=== PATIENT | female | born 1950 | race Hispanic/Latino ===

== ENCOUNTER → 2018-12-04 | Outpatient (CLI) | payer MEDICARE ==
--- NOTE | 2018-12-04 11:37 | Diagnostic Imaging Report ---
Exam: Bone mineral density study. History: Screening, menopause Comparison: None available. Discussion: Evaluation of the left hip and lumbar spine was performed. The study is technically adequate. The patient's fracture risk is compared to an age-matched control. The patient denies prior surgery/fracture of the spine, hips or forearm. Left hip femoral neck bone mineral density: 0.6 g/cm2, T-score is -2.4, Z-score is -0.9. Left hip total bone mineral density: 0.7 g/cm2, T-score is -1.9, Z-score is -0.8. Lumbar spine total bone mineral density: 0.9 g/cm2, T-score is -1.8, Z-score is 0.1. Impression: 1. Bone mineralization by WHO Classification is low bone mass/osteopenia, the fracture risk is increased. 2. The FRAX 10-year probability of major osteoporotic fracture is 12% and hip fracture is 2.2%. These probabilities assume the patient is untreated. Signed by: Dr. Warren Reid D.O., M.M.M. on 12/04/2018 11:34 AM
== END ==
LOC: MAMMO 10:04
PROVIDERS: ATTEND Nurse Practitioner Adult Health
DX: Z12.31 Encounter for screening mammogram for malignant neoplasm of breast (principal); M85.80 Other specified disorders of bone density and structure, unspecified site
CPT/HCPCS: 77067; 77080

== ENCOUNTER → 2019-01-27 | Outpatient (CLI) | payer MEDICARE ==
--- NOTE | 2019-01-27 10:50 | Diagnostic Imaging Report ---
EXAMINATION: RIBS UNILAT W/CXR INDICATION: Status post fall with left rib pain. COMPARISON: None FINDINGS: TUBES and LINES: None. LUNGS: Lungs are well inflated. There is no evidence of pneumonia or pulmonary edema. PLEURA: No pleural effusion or pneumothorax. HEART AND MEDIASTINUM: The cardiomediastinal silhouette is unremarkable. There are atherosclerotic calcifications within the aorta. BONES AND SOFT TISSUES: No acute osseous abnormality. No evidence of left-sided rib fracture. Diffuse osteopenia. UPPER ABDOMEN: No free air under the diaphragm. There are cholecystectomy clips. IMPRESSION: No acute radiographic abnormality. No evidence of left-sided rib fracture. Signed by: Dr. Eriberto Hollingsworth MD on 01/27/2019 10:47 AM
== END ==
LOC: RAD 09:12
PROVIDERS: ATTEND Internal Medicine
DX: S23.41XA Sprain of ribs, initial encounter (principal); M47.12 Other spondylosis with myelopathy, cervical region
CPT/HCPCS: 71101

== ENCOUNTER → 2019-01-31 | Outpatient (CLI) | payer MEDICARE ==
--- NOTE | 2019-01-31 12:46 | Diagnostic Imaging Report ---
Exam: Left rib series with chest radiograph History: Sprain of ribs Comparison: 01/27/2019 Findings: Chest: Lungs are well-inflated and without focal consolidation, pleural effusion, or pneumothorax. Tortuosity and atherosclerotic calcification of the thoracic aorta. Normal heart size. No pulmonary edema. Ribs: No displaced fracture. Impression: 1. No displaced left rib fracture or pneumothorax. Signed by: Dr. Zackary Hooker M.D. on 01/31/2019 12:42 PM
--- NOTE | 2019-01-31 20:24 | Diagnostic Imaging Report ---
MRI SPINE CERVICAL WO HISTORY: Fall, spondylosis, left shoulder pain COMPARISON: None. TECHNIQUE: Sagittal T1, sagittal T2, sagittal inversion recovery, axial T2 and axial T1 weighted MR images of the cervical spine were obtained without intravenous contrast. DISCUSSION: Alignment: Straightening of the cervical lordosis. No scoliosis. Vertebrae: No definite evidence for fractures, infection, or neoplasm. Cervicomedullary junction: No abnormalities. Spinal cord: The left ventral cord is mildly indented by disc at C5-C6. Otherwise, normal in signal and morphology from the foramen magnum through T4-T5. Soft tissues: No signal abnormalities. Mild multilevel cervical disc degeneration is most prominent at C6-C7. C2-C3: Patent canal and foramina. C3-C4: Mild canal stenosis due to posterior disc osteophyte complex and ligamentum flavum thickening. Mild bilateral foraminal stenoses due to uncovertebral and facet arthrosis. C4-C5: Mild canal stenosis due to posterior disc osteophyte complex and ligamentum flavum thickening. Mild left foraminal stenosis due to uncovertebral and facet arthrosis. No significant right foraminal stenosis. C5-C6: Mild to moderate canal stenosis due to left posterior disc osteophyte complex and ligamentum flavum thickening. Mild to moderate bilateral foraminal stenoses due to uncovertebral and facet arthrosis. C6-C7: Mild bilateral foraminal stenoses due to uncovertebral and facet arthrosis. No significant canal stenosis. C7-T1: Patent canal and foramina. IMPRESSION: 1. Mild multilevel cervical disc degeneration, most prominent at C6-C7. 2. Multilevel degenerative canal stenoses - mild to moderate at C5-C6. Associated left C5-C6 posterior disc osteophyte complex slightly indents the left ventral cord. 3. Multilevel degenerative foraminal stenoses - mild to moderate bilaterally at C5-C6. Signed by: Dr. Piotr Sierra M.D. on 01/31/2019 8:20 PM
== END ==
LOC: MRI 11:00
PROVIDERS: ATTEND Internal Medicine
DX: M47.12 Other spondylosis with myelopathy, cervical region (principal); S23.41XA Sprain of ribs, initial encounter
CPT/HCPCS: 71101; 72141

== ENCOUNTER → 2022-03-28 | Outpatient (CLI) | payer MEDICARE | LOC: MAMMO 09:39 | PROVIDERS: ATTEND Internal Medicine | DX: Z12.31 Encounter for screening mammogram for malignant neoplasm of breast (principal) | CPT/HCPCS: 77067 ==

== ENCOUNTER → 2022-06-06 | Outpatient (CLI) | payer MEDICARE | LOC: RAD 10:17 | PROVIDERS: ATTEND Internal Medicine | DX: S43.421A Sprain of right rotator cuff capsule, initial encounter (principal) ==

== ENCOUNTER → 2023-01-04 | Outpatient (CLI) | payer MEDICARE | LOC: RAD 07:57 | PROVIDERS: ATTEND Internal Medicine | DX: S22.32XG Fracture of one rib, left side, subsequent encounter for fracture with delayed healing (principal) | CPT/HCPCS: 71046 ==

== ENCOUNTER → 2023-09-28 | Outpatient (REF) | payer MEDICARE | LOC: MAMMO 09:03 | PROVIDERS: ATTEND Internal Medicine | DX: Z12.31 Encounter for screening mammogram for malignant neoplasm of breast (principal) | CPT/HCPCS: 77067 ==

== ENCOUNTER → 2024-08-01 | Outpatient (REF) | payer MEDICARE | LOC: RAD 14:58 | PROVIDERS: ATTEND Internal Medicine | DX: R04.0 Epistaxis (principal) | CPT/HCPCS: 70220 ==